=== PATIENT | female | born 1980 | race Two or more races ===

== ENCOUNTER 2021-09-05 18:20 | Observation (INO) | payer SELFPAY ==
[~2021-09-05] VITALS: Ht 170.2 cm; Wt 110.2 kg
[2021-09-05] MEDS ORDERED: LACTATED RINGERS 1,000 ML IV SCH (18:45)
[2021-09-05] MEDS ORDERED: TERBUTALINE SULFATE 1MG/ML VIAL SUBCUT NR (20:00)
[2021-09-05] MEDS ORDERED: BETAMETHASONE ACET/BETAMET 30 MG/5 ML VIAL IM NR (20:00)
[2021-09-05 21:11] LABS: CLARITY URINE CLEAR (CLEAR); COLOR URINE YELLOW (YELLOW); KETONES URINE TRACE (NEGATIVE); LEUKOCYTE ESTERASE URINE NEGATIVE (NEGATIVE); NITRITE URINE NEGATIVE (NEGATIVE); OCCULT BLOOD URINE NEGATIVE (NEGATIVE); PH URINE 5.5 (4.5-8.0); PROTEIN URINE TRACE (NEGATIVE); UROBILINOGEN URINE 0.2 E.U./dL (0.2-1.0)
[2021-09-05 21:31] LABS: HEMATOCRIT 30.6 % (36.0-48.0); HEMOGLOBIN 10.4 g/dL (12.0-16.0); MEAN CORPUSCULAR HEMOGLOBIN 30.6 pg (28.0-32.0); PLATELET 200 x1000/uL (130-400); RED BLOOD CELL COUNT 3.41 mill/uL (4.2-5.4); RED CELL DISTRIBUTION WIDTH 13.9 % (11.6-14.6)
[2021-09-05 21:35] LABS: CHLORIDE 106 mEq/L (98-107)
[2021-09-06] MEDS ORDERED: PREN1TAB78 PO (21:12)
[2021-09-06] MEDS ORDERED: METF-416 PO (21:12)
== END 2021-09-05 22:30 | disposition home or self-care (01) ==
LOC: 8 EST LDRP 18:20
PROVIDERS: ADMIT Obstetrics & Gynecology; ATTEND Obstetrics & Gynecology
DX: Z04.3 Encounter for examination and observation following other accident (principal); Z3A.31 31 weeks gestation of pregnancy
CPT/HCPCS: 36415; 59025; 76805; 76818; 80053; 81003; 82731; 82962; 85027; 96372; G0378; J0702; J3105; 99281

== ENCOUNTER 2021-09-06 20:26 | Observation (INO) | payer MEDICAID ==
[~2021-09-06] VITALS: Ht 170.2 cm; Wt 112.9 kg
[2021-09-06] MEDS ORDERED: BETAMETHASONE ACET/BETAMET 30 MG/5 ML VIAL IM ONE (20:45)
[2021-09-06] MEDS ORDERED: METF-416 PO (21:12)
[2021-09-06] MEDS ORDERED: PREN1TAB78 PO (21:12)
== END 2021-09-06 21:20 | disposition home or self-care (01) ==
LOC: 8 EST LDRP 20:26
PROVIDERS: ADMIT Obstetrics & Gynecology; ATTEND Obstetrics & Gynecology
DX: Z34.90 Encounter for supervision of normal pregnancy, unspecified, unspecified trimester (principal); Z3A.00 Weeks of gestation of pregnancy not specified
CPT/HCPCS: 96372; 99281; G0378; J0702; 59025